=== PATIENT | female | born 1990 | race Caucasian/White ===

== ENCOUNTER 2022-06-09 12:51 | Emergency (ER) | payer SELFPAY ==
[~2022-06-09 12:51] MED LIST: Iopamidol 300 61% 100 ML VIAL FS ONE
[2022-06-09 13:54] LABS: #Eosinphils 0.1 10x3/uL (0.0-0.5); #Monocytes 0.5 10x3/uL (0.0-1.1); #Neutrophils 6.3 10x3/uL (1.5-8.4); %Basophils 0.1 % (0.0-2.0); %Eosinophils 0.6 % (0.0-6.0); %Lymphocytes 17.2 % (18.0-47.0); %Monocytes 5.9 % (0.0-10.0); Hemoglobin 13.7 g/dL (12.0-15.5); Mean Corpuscular HGB CONC 35.4 g/dL (32.0-36.0); Mean Corpuscular Hemoglobin 31.9 pg (27.0-33.0); Mean Platelet Volume 9.4 fl (7.4-10.4); Platelet Count 267 10x3/uL (150-450); RBC Distribution Width 12.2 % (11.5-14.5); White Blood Cell (WBC) Count 8.3 10x3/uL (3.5-10.5)
[2022-06-09 14:03] LABS: ALT (SGPT) 14 U/L (8-55); AST (SGOT) 17 U/L (5-34); Albumin 4.6 g/dL (3.5-5.0); Alkaline Phosphatase 74 U/L (40-110); Anion Gap 13 mmol/L (10-20); BUN (Urea Nitrogen) 14 mg/dL (7.0-18.7); Bilirubin, Total 0.4 mg/dL (0.2-1.2); Calc. Creatinine Clearance 0 mL/min (70-130); Calcium 9.7 mg/dL (7.8-10.44); Carbon Dioxide 26 mmol/L (22-29); Chloride 103 mmol/L (98-107); Estimated GFR 101; Globulin 3.1 g/dL (2.4-3.5); Glucose 80 mg/dL (70-105); Potassium 4.3 mmol/L (3.5-5.1); Protein, Total 7.7 g/dL (6.0-8.3); Sodium 138 mmol/L (136-145)
[2022-06-09 14:22] LABS: BHCG - Serum Negative (NEGATIVE); Pregs Control Background? CLEAR/WHITE (CLR/WHITE); Pregs Control Bar Appear? YES (CONTROL BAR)
== END 2022-06-09 15:06 | disposition home or self-care (01) ==
LOC: CSHERS 12:51
DX: R06.02 Shortness of breath (principal)
CPT/HCPCS: 70491; 71045; 80053; 83880; 84443; 84484; 84703; 85025; 93005; Q9967

== ENCOUNTER 2022-07-28 16:34 | Emergency (ER) | payer SELFPAY | END 2022-07-28 21:20 | disposition home or self-care (01) | LOC: CSHERS 16:34 | DX: L03.113 Cellulitis of right upper limb (principal); R21 Rash and other nonspecific skin eruption; F17.290 Nicotine dependence, other tobacco product, uncomplicated | CPT/HCPCS: 99283 ==

== ENCOUNTER 2022-11-01 15:30 | Emergency (ER) | payer SELFPAY ==
[2022-11-01] MEDS ORDERED: Ibuprofen 200 MG TAB ONE (16:20)
== END 2022-11-01 16:51 | disposition home or self-care (01) ==
LOC: CSHERS 15:30
DX: S56.311A Strain of extensor or abductor muscles, fascia and tendons of right thumb at forearm level, initial encounter (principal); W21.09XA Struck by other hit or thrown ball, initial encounter; F17.290 Nicotine dependence, other tobacco product, uncomplicated

== ENCOUNTER 2025-09-18 16:48 | Emergency (ER) | payer SELFPAY | END 2025-09-18 18:02 | disposition home or self-care (01) | LOC: CSHERS 16:48 | DX: S80.12XA Contusion of left lower leg, initial encounter (principal); I10 Essential (primary) hypertension; W22.8XXA Striking against or struck by other objects, initial encounter | CPT/HCPCS: 99284 ==